=== PATIENT | female | born 1965 | race Hispanic/Latino ===

== ENCOUNTER 2018-10-07 17:31 | Observation (INO) | payer BC ==
[2018-10-07] MEDS ORDERED: ONDANSETRON 4 MG/2 ML VIAL IV PRN (18:51)
[2018-10-07] MEDS ORDERED: GUAIFENESIN/DM 5 ML UCUP PO PRN (18:52)
[2018-10-07 19:16] VITALS: BMI 28.0
[2018-10-07 20:13] LABS: Absolute Lymphocytes (CBC) 1.4 K/uL (0.7-4.9); Absolute Monocytes 0.4 K/uL (0.1-1.3); Absolute Neutrophil 2.5 K/uL (1.8-8.0); Basophils % 0.4 % (0-1.3); Eosinophils % 0.6 % (0-4.4); Hematocrit 42.8 % (36.0-45.0); Lymphocytes % 31.8 % (15.3-44.8); MPV 8.6 fL (7.6-11.3); Monocytes % 9.7 % (3.3-12.3); RBC Red Blood Cell Count 4.65 M/uL (3.86-4.86)
[2018-10-07 20:23] LABS: BUN Blood Urea Nitrogen 6 mg/dL (7-18); Bicarbonate 27 mmol/L (21-32); Glucose Level 148 mg/dL (74-106); Magnesium 2.3 mg/dL (1.8-2.4); Potassium 3.6 mmol/L (3.5-5.1); Sodium Level 142 mmol/L (136-145)
[2018-10-07] MEDS: ALBUTEROL 2.5 MG/3 ML NEB SOL NEB SCH (21:20)
[2018-10-07] MEDS: IPRATROPIUM BROM 0.5MG/2.5ML NEB SCH (21:20)
[2018-10-07 21:35] LABS: Urine Appearance CLEAR; Urine Bilirubin NEGATIVE (NEG); Urine Blood NEGATIVE (NEG); Urine Color YELLOW; Urine Glucose NEGATIVE (NEG); Urine Protein NEGATIVE (NEG); Urine Urobilinogen 0.2 mg/dL (0.2-1.0)
[2018-10-07 21:42] LABS: Urine Microscopic Reflex NO UMIC
[2018-10-07] MEDS: NA CHLORIDE 0.9% 1,000 ML IV SCH (22:22)
[2018-10-08] MEDS: METHYLPREDNISOLONE 125 MG INJ IV SCH ×3 (00:51→18:17)
[2018-10-08] MEDS: TEMAZEPAM 15 MG CAP PO PRN ×2 (00:51→23:38)
[2018-10-08] MEDS: ALBUTEROL 2.5 MG/3 ML NEB SOL NEB SCH ×4 (01:50→20:00)
[2018-10-08] MEDS: IPRATROPIUM BROM 0.5MG/2.5ML NEB SCH ×4 (01:50→20:00)
[2018-10-08] MEDS: NA CHLORIDE 0.9% 1,000 ML IV SCH ×4 (03:00→20:15)
[2018-10-08 06:18] LABS: Absolute Lymphocytes (CBC) 0.4 K/uL (0.7-4.9); Absolute Monocytes 0.1 K/uL (0.1-1.3); Absolute Neutrophil 3.6 K/uL (1.8-8.0); Basophils % 0.3 % (0-1.3); Hematocrit 40.8 % (36.0-45.0); Lymphocytes % 10.4 % (15.3-44.8); MPV 8.7 fL (7.6-11.3); Monocytes % 1.7 % (3.3-12.3); RBC Red Blood Cell Count 4.47 M/uL (3.86-4.86)
[2018-10-08 06:32] LABS: BUN Blood Urea Nitrogen 5 mg/dL (7-18); Bicarbonate 27 mmol/L (21-32); Glucose Level 178 mg/dL (74-106); Magnesium 2.2 mg/dL (1.8-2.4); Potassium 3.7 mmol/L (3.5-5.1); Sodium Level 143 mmol/L (136-145)
[2018-10-08 07:53] LABS: Blood Morphology Comment NOT SEEN (NOT SEEN); Platelet Estimate ADEQ; Urine White Blood Cell Casts OK
[2018-10-08] MEDS ORDERED: DICYCLOMINE HCL 10 MG CAP PO PRN (12:17)
--- NOTE | 2018-10-08 18:01 | PN ---
Date of Progress Note: 10/08/2018 The patient states she feels considerably better although her mouth is still dry. Urination has impr luis. Her appetite has also improved somewhat. She states the first time in day she has not had peng rrhea after eating, although it is still loose. Her white blood count shows a viral type syndrome co nfirmed. We will continue with IV fluids and diet will be advanced and she should be able to be disc harged in the a.m. HR/MODL Voice ID: [id number] Report ID: [id number]
[2018-10-08] MEDS: LORAZEPAM 1 MG TABLET PO SCH (20:12)
[2018-10-09] MEDS: IPRATROPIUM BROM 0.5MG/2.5ML NEB SCH ×2 (02:00→07:38)
[2018-10-09] MEDS: ALBUTEROL 2.5 MG/3 ML NEB SOL NEB SCH ×2 (02:00→07:38)
[2018-10-09 06:45] LABS: Absolute Lymphocytes (CBC) 0.7 K/uL (0.7-4.9); Absolute Monocytes 0.4 K/uL (0.1-1.3); Absolute Neutrophil 5.8 K/uL (1.8-8.0); Basophils % 0.1 % (0-1.3); Hematocrit 39.2 % (36.0-45.0); Monocytes % 6.2 % (3.3-12.3); RBC Red Blood Cell Count 4.26 M/uL (3.86-4.86)
[2018-10-09 07:04] LABS: BUN Blood Urea Nitrogen 6 mg/dL (7-18); Bicarbonate 27 mmol/L (21-32); Glucose Level 126 mg/dL (74-106); Potassium 3.8 mmol/L (3.5-5.1); Sodium Level 145 mmol/L (136-145)
[2018-10-09] MEDS: NA CHLORIDE 0.9% 1,000 ML IV SCH (08:20)
[2018-10-09] MEDS: LORAZEPAM 1 MG TABLET PO SCH (08:30)
[2018-10-09] MEDS ORDERED: SERTRALINE HCL 100 MG TAB PO SCH (09:00)
[2018-10-09] MEDS ORDERED: ATENOLOL 50 MG TAB PO SCH (09:00)
[2018-10-09 12:21] VITALS: O2SAT 98
[2018-10-09 13:11] VITALS: BP 121/78; TEMP 99.5
--- NOTE | 2018-10-09 16:59 | PN ---
Date of Progress Note: 10/09/2018 Subjective: The patient feels much better today. Clinically, she is back to baseline. Occasionally some loose stools after eating. No further respiratory symptoms. We will discharge. Continue on a ntispasmodics, home medications, beta-loida for her treatment, and she can return to work next week and will be seen on a p.r.n. basis. Impression: Viremia; gastroenteritis; dehydration, moderate. HR/MODL Voice ID: [id number] Report ID: [id number]
--- NOTE | 2018-10-09 16:59 | HP ---
Date of Admission: 10/07/2018 Chief Complaint: General malaise, cough, abdominal upset. History Of Present Illness: The patient developed severe cough approximately 1 week prior to admissi on. Associated with this, was general malaise, low-grade temp. She was seen twice in the Urgent [facility], placed on symptomatic treatment, felt better for a few days, and then had a relapse especially as far as the diarrhea and cough were concerned. She was seen in the office, changed the antibiotics, h owever, her symptoms never improved. She was dehydrated while in the office and it was felt that if she did not improve on the change of antibiotic, she would require IV fluids and this was in fact wha t happened. As noted, the patient is in good general health. Had no major problems and usually resp onds well to antibiotics. Does have a treatment problem and was placed on beta blockers for this. Family History: Noncontributory. Social History: Nonsmoker, nondrinker. Physical Examination: General: The patient is an obese middle-aged female. Vital signs: Stable. Head and Neck: Normocephalic. Pupils are equal, reactive to light and accommodation. Fundi negativ e. Trachea midline. Thyroid not palpable. ENT: Negative. Chest: Occasional rales in both bases. Adequate air entry and movement. Cardiovascular: PMI in midclavicular line. Heart sounds normal. Peripheral pulses are present and equal bilaterally. Abdomen: Minimal tenderness in lower abdominal area. No guarding, rebound, tenderness, rigidity. B owel sounds hyperactive. Extremities: Moderately dehydrated. Good tone and movement bilaterally. Reflexes physiologic. Rectal/pelvic: Deferred. Impression: Viral syndrome. Plan: The patient will be admitted, placed on IV fluids. We will hold off on the antibiotics. Deb t her GI symptoms with antispasmodics. HR/MODL Voice ID: [id number]
== END 2018-10-09 12:21 | disposition home or self-care (01) ==
LOC: 2ND 17:54
PROVIDERS: ADMIT Family Medicine; ATTEND Family Medicine
DX: E86.0 Dehydration (principal); B34.9 Viral infection, unspecified; K52.9 Noninfective gastroenteritis and colitis, unspecified
CPT/HCPCS: 36415; 80048; 81003; 83735; 85025; 94640; 96365; 96367; G0378; G0379; J2930; J7030

== ENCOUNTER 2020-09-05 09:42 | Day surgery (SDC) | payer BC ==
[2020-09-05 09:40] LABS: BUN Blood Urea Nitrogen 13 mg/dL (7-18); Bicarbonate 27 mmol/L (21-32); Glucose Level 93 mg/dL (74-106); Potassium 3.9 mmol/L (3.5-5.1); Sodium Level 142 mmol/L (136-145)
[2020-09-05 09:41] LABS: Absolute Lymphocytes (CBC) 1.7 K/uL (0.7-4.9); Basophils % 0.3 % (0-1.3); Hematocrit 36.1 % (36.0-45.0); Lymphocytes % 31.4 % (15.3-44.8); MPV 8.7 fL (7.6-11.3); RBC Red Blood Cell Count 4.32 M/uL (3.86-4.86)
--- NOTE | 2020-09-05 11:20 | RAD REPORT ---
EXAM DESCRIPTION: RAD - Chest Pa And Lat (2 Views) - 09/05/2020 9:43 am CLINICAL HISTORY: preop, patient pending left axillary soft tissue incision and drainage COMPARISON: October 2018 TECHNIQUE: Frontal and lateral views of the chest were obtained. FINDINGS: The lungs are clear. Heart size is normal and central vasculature is within normal limit s. No pleural effusion or pneumothorax seen. No acute bony finding noted. No aortic abnormality. IMPRESSION: No acute cardiopulmonary process. No significant change from comparison study.
[2020-09-05] MEDS ORDERED: CEFAZOLIN/SWI 1gm 1 GM/10 ML SYR ONE (12:13)
[2020-09-05] MEDS ORDERED: Ringers Lactate 1,000 ML IV ONE (12:13)
[2020-09-05 13:08] VITALS: O2SAT 100
[2020-09-05] MEDS ORDERED: MIDAZOLAM HCL 2 MG/2 ML INJ ONE (14:18)
[2020-09-05] MEDS ORDERED: LIDOCAINE 1% MPF 5 ML VIAL ONE (14:18)
[2020-09-05] MEDS ORDERED: FENTANYL CITR 100 MCG/2 ML ONE (14:18)
[2020-09-05] MEDS ORDERED: propofoL 200 MG/20 ML VIAL IV ONE (14:18)
[2020-09-05] MEDS ORDERED: dexAMETHasone 10 MG/ML VIAL ONE (15:16)
--- NOTE | 2020-09-05 15:19 | P.BOP ---
Preoperative diagnosis: infected left axillary subQ mass with suppurative hyfradenitis Postoperative diagnosis: same Primary procedure: Excisional biopsy of infected subQ mass with abscess drainage 3x3 cm Estimated blood loss: <10cc Specimen: mass Findings: abcesss Anesthesia: General Complications: None Transferred to: Recovery Room Condition: Good
[2020-09-05] MEDS ORDERED: ONDANSETRON 4 MG/2 ML VIAL ONE (15:24)
[2020-09-05] MEDS ORDERED: KETOROLAC 30 MG/ML INJ ONE (15:24)
[2020-09-05 16:33] VITALS: BP 125/63; TEMP 96.7
--- NOTE | 2020-09-05 19:01 | OP ---
Date of Procedure: 09/05/2020 Surgeon: Donta Claudio MD Preoperative Diagnosis: Infected left axillary subcutaneous mass with suppurative hidradenitis and a bscess. Postoperative Diagnosis: Infected left axillary subcutaneous mass with suppurative hidradenitis and abscess. Procedure: Excisional biopsy of infected subcutaneous mass with abscess drainage about 3 x 3 cm. Specimen: Mass with necrotic tissue. Finding: The patient has abscess, some component of the suppurative hidradenitis with a tunneling un derneath to connect the 3 incisions that we made. Indication: This is the case of a female, who comes to us with a cellulitis of the axilla. That are a covers about 10 x 7 cm, but the patient has 1 area that has a mass in that region. That mass is ul cerated and will be removed. Also will be drained the abscess that we suspect is underneath. The be nefits, alternatives, and risks were fully explained to the patient, which include, but not limited t o infection, bleeding, damage to adjacent structures, anesthesia complication, recurrence, IA, and ev en . She also understands this may not relieve any symptoms. She might need more than one surg ical intervention. She understood, signed a consent. She understands also and we explained to her t he options. DICTATION ENDS HERE DERIAN/KEAGAN Voice ID: [id number] Report ID: [id number]
--- NOTE | 2020-09-05 19:07 | OP ---
Surgeon: Donta Claudio MD Addenum: Proceure In Detail: The patient was brought to the operating room and placed in supine position. A time-out was called. Left axillary area was prepped and draped in usual sterile fashion. We proceed ed to do multiple incisions. There was an abscess that connected these incisions underneath. We rem luis the lump that she has in that region. That gave us to an abscess that connected to 2 of areas o f the axilla. Those 2 areas were also removed. She has 3 wounds and a small little cut on top of th ose. The abscess was drained. The area was irrigated. We sent the culture yesterday, so we did not do at this time. Hemostasis was obtained. The area was packed with wet-to-dry dressing. The patie nt tolerated the procedure well after injecting local anesthetic. The patient sent to recovery in st able condition. DERIAN/KEAGAN Voice ID: [id number] Report ID: [id number]
--- NOTE | 2020-09-05 19:28 | DS ---
Date of Discharge: 09/05/2020 Diagnosis: Infected left axillary subcutaneous mass with suppurative hidradenitis and abscess. Procedure: Excisional biopsy of infected subcutaneous mass with abscess drainage. Disposition: Home. Activity: As tolerated. No heavy lifting. Plan: The patient will use Bactroban over the area and sterile gauze. Follow up in my office in 1 w [employer] [place] from now. May clean the area with soap and water. DERIAN/KEAGAN Voice ID: [id number] Report ID: [id number]
--- NOTE | 2020-09-06 07:38 | EKG ---
Test Date: 2020-09-05 Test Time: 08:13:08 Spa Assistant Manager: SHAVON MEASUREMENT RESULTS: Intervals: Rate: 76 RI: 128 QRSD: 90 QT: 424 QTc: 477 [place]: P: 69 RI: 128 QRS: 66 T: 67 INTERPRETIVE STATEMENTS: Normal sinus rhythm Normal ECG Compared to ECG 11/10/2014 13:54:18 Sinus bradycardia no longer present Electronically Signed On 09-06-20 07:34:52 CDT by David Brian
== END 2020-09-05 16:23 | disposition home or self-care (01) ==
LOC: OR 09:42
PROVIDERS: ATTEND Surgery
PROC: 0J9F0ZZ Drainage of Left Upper Arm Subcutaneous Tissue and Fascia, Open Approach (ICD-10-PCS; 2020-09-05)
PROC: 0JBF0ZZ Excision of Left Upper Arm Subcutaneous Tissue and Fascia, Open Approach (ICD-10-PCS; principal; 2020-09-05 15:00)
DX: R22.32 Localized swelling, mass and lump, left upper limb (principal); L73.2 Hidradenitis suppurativa; L02.412 Cutaneous abscess of left axilla; I96 Gangrene, not elsewhere classified
CPT/HCPCS: 11450; 10060; 11403; 93005; 85025; 80048; 36415; 88304; 71046; J2704; J2250; J3010; J1100; J0690; J7120; J2405

== ENCOUNTER 2020-09-24 17:43 | Emergency (ER) | payer BC ==
--- OUTSIDE RECORDS SUMMARY | 2020-09-24 17:46 | XMS REPORT | Continuity of Care Document ---
:1965 Author Organization [facility] t Address [address] [place] [address] Care Team Providers Name Role Phone Lab, Fam Pob I Attending Clinician Unavailable Orth Attending Clinician Orth Admitting Clinician Problems Condition Condition Condition Status Onset Resolution Last Treating Co mments Source Name Details Category Date Date Treatment Clinician Date MORBID Diagnosis Active 2012-03-03 Mem oria OBESITY 8-20 19:37:00 l MORBID 00:00: Mainor OBESITY 00 Active 01/12/2012 [facility] RVQ PAIN Diagnosis Active 2011-10-15 M emoria -17 08:17:00 l RVQ PAIN 00:00: Minor n 00 Active 10/09/2011 [facility] Pain Problem Active 2012-03-06 Memor ia 08:04:32 l Pain Mainor Active Problem 03/06/2012 [facility] MORBID Diagnosis Active 2012-03-03 Mem oria OBESITY 19:37:00 l MORBID Main[place] OBESITY Active [facility] Allergies, Adverse Reactions, Alerts Allergy Allergy Status Severity Reaction(s) Onset Inactive Treating Comm ents Source Name Type Date Date Clinician codeine codeine Active Cordell Hayward Vicodin Vicodin Active Cordell Hayward Social History Social Habit Start Date Stop Date Quantity Comments Source Social History 2019-07-09 2019-07-09 Imra talamantes 05:59:59 05:59:59 Medications Ordered Filled Start Stop Current Ordering Indication Dosage Frequency Signature Comments Components Source Medication Medication Date Date Medication? Clinician (SIG) Name Name acetaminoph 2011-05 Yes Philip 15 ml, PO, Memoria en-hydrocod 0-11 Parra Q4H, PRN, l one 325 17:07: Owen 500 mL, [place] mg-10 mg/15 01 for pain, mL oral Substituti solution on Allowed, Maintenanc e, SOLN Lortab 500 2011-05 No Philip 15 mL, PO, M emoria mg-7.5 0-11 Parra Q4H, PRN, l mg/15 mL 17:01: Owen 500 mL, 0, Her chance oral elixir 06 0, Pain Score 1-5, Substituti on Allowed, Maintenanc e, ELIX sertraline 2011-05 Yes Philip 150 mg, Maxim shabnam 20 mg/mL 0-11 Parra 7.5 mL, l oral 16:58: Owen PO, Daily, [place] concentrate 58 100 mL, Substituti on Allowed, CONC Lortab 2011-05 No Philip 15 mL, Memoria Elixir 0-10 Fidel Route: PO, l 500mg-7.5mg 23:28: Brayden Drug Form: Main[place] /15ml 00 ELIX, Dosing Weight 86.506, kg, Q4H, PRN Pain Score 1-5, Start date: 03/03/12 18:28:00, Duration: 30 day, Stop date: 04/02/12 18:27:00 Lortab 2011-05 No Philip 30 mL, Memoria Elixir 0-10 Fidel Route: PO, l 500mg-7.5mg 23:26: Brayden Drug Form: [place] /15ml 00 ELIX, Dosing Weight 86.506, kg, Q4H, PRN Pain Score 6-10, Start date: 03/03/12 18:26:00, Duration: 30 day, Stop date: 04/02/12 18:25:00 Lortab 2011-05 No Philip 15 ml, Memoria Elixir 0-10 Fidel Route: PO, l 500mg-7.5mg 15:22: Brayden Drug Form: [place] /15ml 00 ELIX, Dosing Weight 86.506, kg, Q6H, PRN Pain, Start date: 03/03/12 10:22:00, Duration: 30 day, Stop date: 04/02/12 10:21:00 heparin 2011-05 No Ritchie 5,000 Memoria 0-10 [place] unit, 1 l 13:00: De Jesus Sr mL, Route: He rmann 00 SUB-Q, Drug form: INJ, Q8H, Start date: 03/03/12 8:00:00, Duration: 30 day, Stop date: 04/02/12 0:00:00 D5W 1/2NS + 2011-05 No Philip 1,000 mL, Francy sheppard KCL 20mEq/L 0-10 Parra Rate: 75 l 1000ml 12:54: Owen ml/hr, Mainor (Premix) 00 Infuse 1,000 mL over: 13.3 hr, Route: IV, kg, Total Volume: 1,000, Start date: 03/03/12 7:54:00, Stop date: 04/02/12 7:53:00 Protonix 2011-05 No Ritchie 40 mg, Memoria 0-09 [place] Route: l 21:30: De Jesus Sr IVP, Drug Her chance 00 form: INJ, Before Dinner, Start date: 03/02/12 16:30:00, Duration: 30 day, Stop date: 03/31/12 16:30:00 heparin 2011-05 No Johnny 5,000 Memoria 5000 0-09 Edvin unit, 1 l units/mL 21:00: [place] mL, Route: Mainor injectable 00 SUB-Q, solution Drug form: INJ, Q8H, Dosing Weight 86.506, kg, Start date: 03/02/12 16:00:00, Duration: 30 day, Stop date: 04/01/12 8:00:00 Mefoxin 2011-05 No Ritchie 2 gm, Memoria 0-09 [place] Route: l 20:00: De Jesus Sr IVPB, Drug He rmann 00 form: INJ, ABXQ8H, Start date: 03/02/12 15:00:00, Duration: 2 doses or times, Stop date: 03/03/12 0:00:00 Ofirmev 2011-05 No Ritchie 1,000 mg, Memor ia 0-09 [place] 100 mL, l 19:00: De Jesus Sr Route: IV, He rmann 00 Drug form: INJ, Q6H-02, Start date: 03/02/12 14:00:00, Duration: 3 doses or times, Stop date: 03/03/12 4:00:00 Zofran 2011- No Ritchie 4 mg, 2 Memoria 0-09 [place] mL, Route: l 18:08: De Jesus Sr IVP, Drug Her chance 00 form: INJ, Q6H, PRN Nausea & Vomiting, Start date: 03/02/12 13:08:00, Duration: 30 day, Stop date: 04/01/12 13:07:00 Phenergan 2011-05 No Ritchie 25 mg, 1 Maxim shabnam 0-09 [place] mL, Route: l 18:07: De Jesus Sr IM, Drug Herm kimmie 00 form: INJ, Q4H, PRN Nausea & Vomiting, Start date: 03/02/12 13:07:00, Duration: 30 day, Stop date: 04/01/12 13:06:00 Benadryl 2011-05 No Ritchie 25 mg, 0.5 Mem oria 0-09 [place] mL, Route: l 18:06: De Jesus Sr IM, Drug Herm kimmie 00 form: INJ, Bedtime, PRN Insomnia, Start date: 03/02/12 13:06:00, Duration: 30 day, Stop date: 04/01/12 13:05:00 Mefoxin 2011- No Ritchie 2 gm, Memoria 0-09 [place] Route: l 18:00: De Jesus Sr IVPB, Drug He rmann 00 form: INJ, ABXQ6H, Start date: 03/02/12 13:00:00, Duration: 3 doses or times, Stop date: 03/03/12 1:00:00 Zofran 2011- No Ritchie 4 mg, 2 Memoria 0-09 [place] mL, Route: l 16:58: De Jesus Sr IVP, Drug Her chance 00 form: INJ, Q8H, PRN Nausea & Vomiting, Start date: 03/02/12 11:58:00, Duration: 30 day, Stop date: 04/01/12 11:57:00 Benadryl 2011-05 No Ritchie 25 mg, 0.5 Mem oria 0-09 [place] mL, Route: l 16:57: De Jesus Sr IV, Drug Herm kimmie 00 form: INJ, Q6H, PRN Itching, Start date: 03/02/12 11:57:00, Duration: 30 day, Stop date: 04/01/12 11:56:00 hydromorpho 2011-05 No Philip 6 mg, 30 Me moria ne 6 mg 0-09 Parra mL, Route: l 16:55: Owen IV, Drug Form: INJ, Start date: 03/02/12 11:55:00, Duration: 30 day, Stop date: 04/01/12 11:54:00 naloxone 2011-05 No Ritchie 0.4 mg, 1 Maxim shabnam 0-09 [place] mL, Route: l 16:53: De Jesus Sr IV, Drug form: INJ, PRN, PRN Narcotic Reversal, Start date: 03/02/12 11:53:00, Duration: 30 day, Stop date: 04/01/12 10:52:00 ondansetron 2011-05 No Sammy 4 mg, 2 Memoria 0-09 Marroquin II mL, Route: l 15:03: IVP, Drug form: INJ, ONCE, Dosing Weight 86.506, kg, PRN Nausea & Vomiting, Start date: 03/02/12 10:03:00 hydromorpho 2011-05 No Sammy 0.5 mg, Memoria ne 0-09 Marroquin II 0.25 mL, l 15:03: Route: Mainor 00 IVP, Drug form: INJ, Q5Min, Dosing Weight 86.506, kg, PRN Pain Score 4-6, Start date: 03/02/12 10:03:00, Duration: 5 doses or times, Stop date: 03/03/12 0:00:00 naloxone 2011-05 No Sammy 0.04 mg, Me moria 0-09 Marroquin II 0.1 mL, l 15:03: Route: Mainor 00 IVP, Drug form: INJ, Q2MIN, Dosing Weight 86.506, kg, PRN Narcotic Reversal, Start date: 03/02/12 10:03:00, Duration: 8 doses or times, Stop date: 03/03/12 0:00:00 flumazenil 2011-05 No Sammy 0.2 mg, 2 Memoria 0-09 Marroquin II mL, Route: l 15:03: IVP, Drug Mainor 00 form: INJ, PRN, Dosing Weight 86.506, kg, PRN Benzodiaze pine Reversal, Initial dose, Start date: 03/02/12 10:03:00, Duration: 30 day, Stop date: 04/01/12 9:02:00 fentanyl 2011- No Sammy 25 Memori a 0-09 Marroquin II microgram, l 15:03: 0.5 mL, Mainor 00 Route: IVP, Drug form: INJ, Q5Min, Dosing Weight 86.506, kg, PRN Pain Score 4-6, Start date: 03/02/12 10:03:00, Duration: 4 doses or times, Stop date: 03/03/12 0:00:00 cefoxitin 2011-05 No Johnny 2 gm, Memor ia 0 Route: l 15:00: IVPB, [place] 00 ABXQ6H, Dosing Weight 86.506, kg, Start date: 03/02/12 10:00:00, Stop date: 03/03/12 4:45:00 Dilaudid 2011-05 No Johnny 6 mg, 30 Mem oria 0.2 mg/ml 0 mL, Route: l PARKING MANAGER (6 15:00: IV, PARKING MANAGER Her chance mg/30 mL) 00 Dose: 0.2 INJ Syringe mg, PARKING MANAGER 6 mg Lockout: 6 minutes, 4 Hour Limit (In MG): 4.8, Drug Form: INJ, Continuous , Start date: 03/02/12 10:00:00, Duration: 30 day, Stop date: 04/01/12 8:59:00 Ofirmev 2011-05 No Johnny 1,000 mg, Mem oria 0- 100 mL, l 14:50: Route: IV, He rm Drug form: INJ, ONCE, Dosing Weight 86.506, kg, for > or = 50 kg, Start date: 03/02/12 9:50:00, Stop date: 03/02/12 9:50:00 Zofran 2011-05 No Johnny 4 mg, 2 Memori a 0- mL, Route: l 14:48: IV, Drug form: INJ, Q8H, Dosing Weight 86.506, kg, PRN Nausea, Start date: 03/02/12 9:48:00, Duration: 30 day, Stop date: 04/01/12 9:47:00 Lactated 2011-05 No Philip 1,000 mL, Maxim shabnam Ringers IV 0 Parra Rate: 150 l 1,000 mL 14:48: Owen ml/hr, [place] 00 Infuse over: 6.7 hr, Route: IV, kg, Total Volume: 1,000, Start date: 03/02/12 9:48:00, Duration: 30 day, Stop date: 04/01/12 9:47:00, heparin 2011-05 No Ritchie 5,000 Memoria 0-09 [place] unit, 1 l 04:00: De Jesus Sr mL, Route: He rmann 00 SUB-Q, Drug form: INJ, PRE OP, Start date: 03/01/12 23:00:00, Duration: 1 day, Stop date: 03/02/12 22:59:00 scopolamine 2011-05 No Ritchie 1 patch, Me moria 0-09 Ventura Route: l 04:00: De Jesus Sr TOP, Drug Her chance 00 form: ERFILM, PRE OP, Start date: 03/01/12 23:00:00, Duration: 1 day, Stop date: 03/02/12 22:59:00 Ofirmev 2011-05 No Ritchie 1,000 mg, Memor ia 0-09 [place] 100 mL, l 04:00: De Jesus Sr Route: IV, He rmann 00 Drug form: INJ, PRE OP, Start date: 03/01/12 23:00:00, Duration: 1 day, Stop date: 03/02/12 22:59:00 Mefoxin 2011-05 No Ritchie 2 gm, Memoria 0-09 [place] Route: l 04:00: De Jesus Sr IVPB, Drug He rmann 00 form: INJ, PRE OP, Start date: 03/01/12 23:00:00, Duration: 1 day, Stop date: 03/02/12 22:59:00 LORAzepam 1 2011-05 Yes 1 mg, 1 Mem oria mg oral 0-03 tab, PO, l tablet 16:03: TID, PRN, Minor n 44 20 tab, Anxiety, Substituti on Allowed atenolol 50 2011-05 Yes 50 mg, 1 Me moria mg oral 0-03 tab, PO, l tablet 16:03: Daily, 30 Minor n 26 tab, Substituti on Allowed Zoloft 2011-05 No 150 mg, Memoria 0-03 PO, Daily, l 16:03: Substituti [place] 10 on Allowed Vital Signs Vital Name Observation Time Observation Value Comments Source Temperature Oral (F) 2012-03-04 17:20:00 98.3 F [facility] [address] Heart Rate 2012-03-04 17:20:00 [facility] [place] Systolic (mm Hg) 2012-03-04 17:20:00 Maxim rial [place] Respitory Rate 2012-03-04 17:20:00 Memori al [place] Diastolic (mm Hg) 2012-03-04 17:20:00 Mem orial [place] Diastolic (mm Hg) 2012-03-04 12:55:00 Mem orial [address] Respitory Rate 2012-03-04 12:55:00 Memori al [address] Temperature Oral (F) 2012-03-04 12:55:00 98.2 F [facility] [place] Heart Rate 2012-03-04 12:55:00 [facility] [place] Systolic (mm Hg) 2012-03-04 12:55:00 Maxim rial [address] Temperature Oral (F) 2012-03-04 09:16:00 98.1 F [facility] [place] Respitory Rate 2012-03-04 09:16:00 Memori al [address] Heart Rate 2012-03-04 09:16:00 [facility] Diastolic (mm Hg) 2012-03-04 09:16:00 Mem orial [place] Systolic (mm Hg) 2012-03-04 09:16:00 Maxim rial [place] Weight 2012-03-02 10:54:00 [facility] [address] Height 2012-02-25 17:39:00 176.53 cm [facility] Procedures This patient has no known procedures. Encounters Start End Encounter Admission Attending Care Care Encounter Source Date/Time Date/Time Type Type Clinicians Facility Department ID 2020-09-20 2020-09-20 Laboratory Lab, [facility] [id number] 14:42:08 15:02:08 Only Fam b I [facility] [id number] [place] [id number] Professio [id number] nal [address] 2019-07-08 2019-07-08 Outpatient ConnerGiovanny [id number] 13:04:50 23:59:59 8 Results Test Description Test Time Test Comments Results Result Comments Source CHEMISTRY 2012-03-04 0.7 [facility] 08:00:00 CHEMISTRY 2012-03-04 111 [facility] 08:00:00 CHEMISTRY 2012-03-04 141 [facility] 08:00:00 CHEMISTRY 2012-03-04 3.8 [facility] 08:00:00 CHEMISTRY 2012-03-04 106 [facility] 08:00:00 CHEMISTRY 2012-03-04 25 [facility] 08:00:00 CHEMISTRY 2012-03-04 103 [facility] 08:00:00 CHEMISTRY 2012-03-04 7.6 [facility] 08:00:00 CHEMISTRY 2012-03-04 3 [facility] 08:00:00 CHEMISTRY 2012-03-04 13.8 [facility] 08:00:00 CHEMISTRY 2012-03-04 2.2 [facility] 08:00:00 CHEMISTRY 2012-03-04 2.0 [facility] 08:00:00 HEMATOLOGY 2012-03-04 0.0 [facility] 08:00:00 HEMATOLOGY 2012-03-04 0.0 [facility] 08:00:00 HEMATOLOGY 2012-03-04 68.3 [facility] 08:00:00 HEMATOLOGY 2012-03-04 6.4 [facility] 08:00:00 HEMATOLOGY 2012-03-04 25.0 [facility] 08:00:00 HEMATOLOGY 2012-03-04 6.0 [facility] 08:00:00 HEMATOLOGY 2012-03-04 0.1 [facility] 08:00:00 HEMATOLOGY 2012-03-04 0.6 [facility] 08:00:00 HEMATOLOGY 2012-03-04 2.2 [facility] 08:00:00 HEMATOLOGY 2012-03-04 0.2 [facility] 08:00:00 HEMATOLOGY 2012-03-04 9.5 [facility] 08:00:00 HEMATOLOGY 2012-03-04 198 [facility] 08:00:00 HEMATOLOGY 2012-03-04 08:00:00 Test Item Value Reference Range Interpretation Comme nts MCH (test code = MCH) 31.0 pg 27.0-31.0 N [facility] WmxbetfYUDKOJFWVZ1657-18-37 08:00:0033.1[facility]ann[facility]MATOLOGY 2012-03-04 08:00:0013.7[facility] ZxkqbwqWAZHZZGBMU5894-18-42 08:00:0039.5[facility] WgwquucRWWNDLXIEF6983-80-96 08:00:0093.7[facility] TtfgdegUNXFWYQRPP1718-58-99 08:00:008.8[facility] DjdhbbkZGNCPBSHHX5538-33-50 08:00:004.22[facility] [place] MIKMQDBLKQ0131-92-00 08:00:0013.1[facility] EesqxdzJQTOCNAFJX9311-01-31 07:26:00 12.7[facility] VeglcwfBYKKHTLXFY2018-66-31 07:26:0036.7[facility]annHEMATOLOGY 2012-03-03 07:26:009.1[facility] LwocludDWJPRWUFHL3133-83-86 07:26:62875Ljftozkz QexzsawFKSYCLCSYA6402-55-03 07:26:000.0[facility] VuysqdzPKSGVSIVZN2163-52-83 07:26:000.2[facility] NwuudcvWLJIARJTLD1586-27-16 07:26:001.7[facility] ESGGGENAKR8731-72-94 07:26:000.0[facility] TkwgllsGBGXQKYWXA8323-51-96 07:26:007.4 [facility] YaeoxpuHTVDFOTTBX2868-41-47 07:26:0075.1[facility]annHEMATOLOGY 2012-03-03 07:26:0016.7[facility] HxahuqlISRIBPAYLN6249-60-47 07:26:008.0[facility] JfjfeuyUNLKGLARNK5134-13-25 07:26:000.8[facility] UfshiroMZFFLNMCOI4606-77-15 07:26:000.0[facility] ZlsvhcsJONRVTLSN2493-43-59 07:26:001.8[facility] GFSVGBXVT5899-47-46 07:26:49950Dhkhxsyl CmqrhzsVFYSUTQAW9447-15-64 07:26:0086 [facility] VfnzfgyWCOTKBMYM5735-03-76 07:26:000.7[facility]annCHEMISTRY 2012-03-03 07:26:005[facility] ZcashvbPCIJKWDZA2925-55-64 07:26:60671Uruogtej RnndvbzXRUZOHYYW3170-14-25 07:26:004.5[facility] DhjtlulEUIJOGTUT2620-31-99 07:26:43898Bhvntinx KekvklfFKSEGYFZM1296-35-91 07:26:008.0[facility] MPAICHADE5501-94-57 07:26:0025[facility] RqzdtebJJZDVWAFI4256-83-10 07:26:0013.5 [facility] JixroznLTMEALCIB8174-10-92 07:26:002.5[facility]annHEMATOLOGY 2012-03-03 07:26:009.9[facility] NpkmjeiVLUVBDEDVK7337-60-56 07:26:003.98[facility] MxysxyfWFXSTDSGBN2254-06-28 07:26:0034.5[facility] UfuzjqmMJROXRJKHJ2268-57-79 07:26:0013.4[facility] PtrwbixCYYSVADAPH3697-81-79 07:26:0092.2[facility] GWUATKDPVR0346-73-09 07:26:00 Test Item Value Reference Range Interpretation Comments MCH (test code = MCH) 31.9 pg 27.0-31.0 H [facility]ann[facility]OOD BANK DMATIZX1772-44-87 10:45:00Negative (03/02/2012 05:45:00)[facility] GagiferCWDPCRWHY0503-10-81 10:30:00Negative (03/02/2012 05:30:00)[facility] BkrxoclAHWAPRWUP7603-99-73 16:00:0089[facility]annCHEMISTRY 2012-02-25 16:00:0047[facility] VxrlcopYFAKYHJMP5253-32-55 16:00:004.0[facility] PkjiptbNOATFNXUO6677-64-94 16:00:0013.1[facility] CnupvxgXHVFQMPKC1441-35-21 16:00:001.2[facility] LosxnunRJCYAKBCH0713-51-01 16:00:0017[facility] MSAIZPUUK2464-02-38 16:00:003.2[facility] OpgvnuzJBPRCFGUGN6318-43-62 16:00:000.0 [facility] KvvxaymVTOBNJEWSK2739-19-41 16:00:000.0[facility]annHEMATOLOGY 2012-02-25 16:00:000.4[facility] CubckbfOVSBCQRNUM8230-39-01 16:00:004.2[facility] WtsuzlvNPZSKHGLTS1570-24-26 16:00:002.4[facility] GbsnixxSWREIFMTYC3365-18-55 16:00:000.2[facility] HvrbdxmFFJHIOIYJW9623-36-39 16:00:005.7[facility] [place] JZEDSKJCOL3053-22-21 16:00:000.4[facility] IuguciaDLECPDNCIL8954-39-50 16:00:00 34.1[facility] IulaqpbTLRDHKAOMN4871-91-90 16:00:0059.6[facility]annHEMATOLOGY 2012-02-25 16:00:0014.1[facility] JjvgzcmXGWPUIDVFX1928-83-41 16:00:0033.1[facility] MowciqaWRLYUIWNBT8870-76-66 16:00:00 Test Item Value Reference Range Interpretation Comments MCH (test code = MCH) 31.3 pg 27.0-31.0 H [facility] BpbistlESTRYFSPMD7840-54-72 16:00:55664Kbsvggom HermannHEMATOLOGY 2012-02-25 16:00:009.4[facility] XmzbylhEQUEQNNZMV5056-41-56 16:00:0014.7[facility] AhevmifAVDOXTMQKP0795-41-18 16:00:0094.6[facility] EaxyxxjWWTMODCZMS5442-52-29 16:00:007.0[facility] SfgsuoqLJKXFNMIXJ6685-23-01 16:00:0044.3[facility] ANGOASWFSY5118-27-99 16:00:004.68[facility] SpnglifRFUJLMHHZN9062-54-72 16:00:00 <1[facility] PzpofeoFNIYPPUWLW8137-89-40 16:00:00Few /LPF *NA*(02/25/2012 11:00:00)[facility] ZzbcpjkZGFPXPPZST7603-93-81 16:00:00Few /LPF *NA*(02/25/2012 11:00:00)[facility] DgecgpgRZSERMWNEG4738-91-85 16:00:00Negative (02/25/2012 11:00:00)[facility] YicjgmmLKLEGRXULI3827-03-27 16:00:00Negative (02/25/2012 11:00:00)[facility] MgdecfjINNSBPPKJN3440-06-64 16:00:00Negative (02/25/2012 11:00:00)[facility] QdghonjTGRDNWSIYG1725-57-69 16:00:00Negative *NA*(02/25/2012 11:00:00)[facility] KafhrmnMGBPSMSBZW3627-14-33 16:00:00Negative mg/dL *NA*(02/25/2012 11:00:00)[facility] YbvjunjFBGDNJMWLZ0112-81-77 16:00:00Negative mg/dL *NA*(02/25/2012 11:00:00)[facility] VodqgpjJGYCVORZBR1288-95-67 16:00:00 Negative mg/dL (02/25/2012 11:00:00)[facility] ZfjnynjPGVZFROBBK7747-70-73 16:00:00Yellow *NA*(02/25/2012 11:00:00)[facility] ZhrsmqmPLPGZMYBTA2412-96-47 16:00:001.018[facility] HkucdseGXMWIDXOPL5216-35-68 16:00:00Clear (02/25/2012 11:00:00)[facility] RiojmozFRDEQRNWLC4337-84-17 16:00:005.5[facility] [place] XYGNQEWJB4477-12-12 16:00:00>60[facility] CssxremETXWAURAY4191-47-22 16:00:0012 [facility] GaflwyjFYYXVDDVV8439-75-45 16:00:000.7[facility] HermannCHEMISTRY 2012-02-25 16:00:23535Hbuovliu TtzymjtZTGYDWPID2616-96-75 16:00:005.1[facility] SrisevoJLVMALYHF8829-88-04 16:00:90703Qybygsph KuvtynhODVUPCTUT5941-61-59 16:00:0026[facility] YpvsmeiBRWCAQRUG2477-69-74 16:00:007.2[facility] [place] DJSYXKQQP7066-42-81 16:00:000.4[facility] IelzwgfLYZARJZYK0715-64-83 16:00:008.6 [facility] UtfdpvtWWQNNFWXM1227-67-33 16:00:0014[facility] HermannCHEMISTRY 2012-02-25 16:00:0072[facility] [place]
--- NOTE | 2020-09-24 20:02 | RAD REPORT ---
EXAM DESCRIPTION: RAD - Chest Single View - 09/24/2020 7:38 pm CLINICAL HISTORY: CONGESTION COMPARISON: Two view chest September 05, 2020 TECHNIQUE: AP portable chest image was obtained 09/24/2020 7:38 pm . FINDINGS: No peripheral mass, consolidation, failure or volume overload. Interstitial markings are p rominent but not clearly different. Heart and vasculature are normal. No measurable pleural effusion and no pneumothorax. No acute bony abnormality seen. No acute aortic findings suspected. IMPRESSION: No acute cardiopulmonary process. No significant change from comparison study.
--- NOTE | 2020-09-24 22:07 | ER ---
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 Doctor sent her to get tested for covid again, pt reports she was tested . 19:23 Coronavirus screen: Client presents with at least one sign or symptom that may indicate ea coronavirus-19. Standard/surgical mask placed on the client. Ebola Screen: No symptoms or risks identified at this time. Initial Sepsis Screen: Does the patient meet any 2 criteria? No. Patient's initial sepsis screen is negative. Does the patient have a suspected source of infection? No. Patient's initial sepsis screen is negative. Risk Assessment: Do you want to hurt yourself or someone else? Patient reports no desire to harm self or others. Onset of symptoms was September 24, 2020. 19:23 Method Of Arrival: Ambulatory ea 19:23 Acuity: TACHO 3 ea Historical: - Allergies: 19:23 No Known Allergies; ea - PSHx: 19:23 gastric bypass; foot surgery; ea - Immunization history:: Adult Immunizations up to date. - Social history:: Smoking status: Patient denies any tobacco usage or history of. - Family history:: not pertinent. - Hospitalizations: : No recent hospitalization is reported. Screenin:22 Abuse screen: Denies threats or abuse. Nutritional screening: No deficits noted. ea Tuberculosis screening: No symptoms or risk factors identified. Fall Risk None identified. Assessment: 22:21 General: Appears uncomfortable, Behavior is calm, cooperative, appropriate for age. ea Pain: Denies pain. Cardiovascular: Patient's skin is warm and dry. Respiratory: Airway is patent Respiratory effort is even, unlabored, Respiratory pattern is regular, symmetrical. Derm: Skin is pink, warm \T\ dry. 22:31 Reassessment: Patient and/or family updated on plan of care and expected duration. Pain ea level reassessed. Patient is alert, oriented x 3, equal unlabored respirations, skin warm/dry/pink. Discharge instruction given to patient verbalized the understanding of instruction. Pt left ED ambulatory tolerating well. Vital Signs: 19:23 BP 131 / 89; Pulse 99; Resp 19; Temp 98.6; Pulse Ox 99% ; Weight 69.4 kg; Height 5 ft. ea 2 in. (157.48 cm); Pain 0/10; 22:32 BP 128 / 78; Pulse 80; Resp 18; Temp 98.4; Pulse Ox 98% ; ea 19:23 Body Mass Index 27.98 (69.40 kg, 157.48 cm) ea ED Course: 17:46 Patient arrived in ED. mr 17:46 Johnny Su MD is Private Physician. mr 19:24 Triage completed. ea 19:38 XRAY Chest (1 view) In Process Unspecified. EDMS 21:40 Jorge Wagner MD is Attending Physician. rn 22:21 Elsa Brothers RN is Primary Nurse. ea 22:21 Patient has correct armband on for positive identification. Bed in low position. Call ea light in reach. 22:22 Arm band placed on right wrist. Patient placed in an exam room, on a stretcher, on ea pulse oximetry. 22:32 No provider procedures requiring assistance completed. Patient did not have IV access ea during this emergency room visit. Administered Medications: 22:28 Drug: SOLU-Medrol (methylPREDNISolone sodium succinate) 125 mg Route: IM; Site: right ea gluteus; 22:33 Follow up: Response: No adverse reaction ea Outcome: 22:06 Discharge ordered by . rn 22:32 Discharged to home ambulatory, with family. ea 22:32 Condition: stable 22:32 Discharge instructions given to patient, Instructed on discharge instructions, follow up and referral plans. Demonstrated understanding of instructions, follow-up care. 22:33 Patient left the ED. ea Signatures: Dispatcher [employer] EDDE Kayla Wilson mr Jorge Wagner MD MD rn Antunez, Elena, RN RN ea
--- NOTE | 2020-09-24 22:07 | EDPHYS ---
Physician Documentation [facility] Name: Irish Bull Age: 55 yrs Sex: Female : 1965 Arrival Date: 09/24/2020 Time: 17:46 Bed 18 Private MD: Johnny Su ED Physician Jorge Wagner HPI: 09/24 22:01 This 55 yrs old Female presents to ER via Ambulatory with complaints of Cough, rn Congestion, Eye Swelling. 22:01 The patient or guardian reports cough, that is intermittent, described as mild, with no rn sputum. Onset: The symptoms/episode began/occurred 1 week(s) ago. Severity of symptoms: At their worst the symptoms were mild, in the emergency department the symptoms are unchanged. Modifying factors: The symptoms are alleviated by nothing, the symptoms are aggravated by nothing. Associated signs and symptoms: Pertinent positives: rhinorrhea, sore throat, Pertinent negatives: chest pain, fever. The patient has experienced similar episodes in the past. Reports tested twice already for COVID but so did family member and most recent test for family member now positive. She has had symptoms now for 1.5 weeks with cough, congestion, sore throat, eye drainage, has been seen by pcp, given oral abx, eye abx drops. Not improving, not worse either. Here for repeat covid testing.. Historical: - Allergies: 19:23 No Known Allergies; ea - PSHx: 19:23 gastric bypass; foot surgery; ea - Immunization history:: Adult Immunizations up to date. - Social history:: Smoking status: Patient denies any tobacco usage or history of. - Family history:: not pertinent. - Hospitalizations: : No recent hospitalization is reported. ROS: 22:01 Constitutional: Negative for fever, chills, and weight loss, Eyes: + eye drainage ENT: rn + sore throat Neck: Negative for injury, pain, and swelling, Cardiovascular: Negative for chest pain, palpitations, and edema, Respiratory: Negative for shortness of breath, wheezing, and pleuritic chest pain, Abdomen/GI: Negative for abdominal pain, nausea, vomiting, diarrhea, and constipation, Back: Negative for injury and pain, : Negative for injury, bleeding, discharge, and swelling, MS/Extremity: Negative for injury and deformity, Skin: Negative for injury, rash, and discoloration, Neuro: Negative for headache, weakness, numbness, tingling, and seizure. Exam: 22:01 Constitutional: This is a well developed, well nourished patient who is awake, alert, rn and in no acute distress. Head/Face: Normocephalic, atraumatic. Eyes: Dried right ocular drainage, no corneal abnormality or discoloration. Left eye normal. No curretn drainage. ENT: No stridor Neck: Trachea midline, no masses palpated, and no cervical lymphadenopathy. Supple, full range of motion without nuchal rigidity, or vertebral point tenderness. No Meningismus. Cardiovascular: Regular rate and rhythm. No pulse deficits. Respiratory: Speaking full sentences, unlabored. No increased work of breathing, no retractions or nasal flaring. Unlabored when walking from bathroom. Abdomen/GI: soft, non-tender Skin: Warm, dry MS/ Extremity: Pulses equal, no cyanosis. Neurovascular intact. Full, normal range of motion. Equal circumference. Neuro: Awake and alert, GCS 15, oriented to person, place, time, and situation. Cranial nerves II-XII grossly intact. Motor strength 5/5 in all extremities. Sensory grossly intact. Cerebellar exam normal. Normal gait. Vital Signs: 19:23 BP 131 / 89; Pulse 99; Resp 19; Temp 98.6; Pulse Ox 99% ; Weight 69.4 kg; Height 5 ft. ea 2 in. (157.48 cm); Pain 0/10; 22:32 BP 128 / 78; Pulse 80; Resp 18; Temp 98.4; Pulse Ox 98% ; ea 19:23 Body Mass Index 27.98 (69.40 kg, 157.48 cm) ea MDM: 21:40 Patient medically screened. rn 22:04 Differential Diagnosis: Upper Respiratory Infection Pharyngitis Viral Syndrome rn Pneumonia. Data reviewed: vital signs, nurses notes, lab test result(s), radiologic studies, plain films, and as a result, I will discharge patient. Counseling: I had a detailed discussion with the patient and/or guardian regarding: the historical points, exam findings, and any diagnostic results supporting the discharge/admit diagnosis, lab results, radiology results, the need for outpatient follow up, to return to the emergency department if symptoms worsen or persist or if there are any questions or concerns that arise at home. Special discussion: I discussed with the patient/guardian in detail that at this point there is no indication for admission to the hospital. It is understood, however, that if the symptoms persist or worsen the patient needs to return immediately for re-evaluation. Based on the history and exam findings, there is no indication for further emergent testing or inpatient evaluation. I discussed with the patient/guardian the need to see the primary care provider for further evaluation of the symptoms. 22:04 ED course: Stable vitals, no oxygen requirement, COVID neg, likely viral syndrome given rn constellation of symptoms and failure of abx x 2 to correct symptoms. Stable vitals. Will dc home. . 09/24 19:26 Order name: XRAY Chest (1 view); Complete Time: 21:40 ea 09/24 22:03 Order name: SARS-COV-2 RT PCR; Complete Time: 22:04 EDMS Administered Medications: 22:28 Drug: SOLU-Medrol (methylPREDNISolone sodium succinate) 125 mg Route: IM; Site: right ea gluteus; 22:33 Follow up: Response: No adverse reaction ea Disposition: 09/24/20 22:06 Discharged to Home. Impression: Acute upper respiratory infection, unspecified. - Condition is Stable. - Discharge Instructions: Upper Respiratory Infection, Adult, Viral Respiratory Infection. - Medication Reconciliation Form, Thank You Letter, Antibiotic Education, Prescription Opioid Use form. - Follow up: Private Physician; When: As needed; Reason: Recheck today's complaints, Re-evaluation by your physician. - Problem is an ongoing problem. - Symptoms have improved. Signatures: Dispatcher [employer] [facility] Jorge Wagner MD MD rn Antunez, Elena, RN RN ea Corrections: (The following items were deleted from the chart) 21:23 20:41 CORONAVIRUS+MR.LAB.BRZ ordered. [facility] 22:33 22:06 09/24/2020 22:06 Discharged to Home. Impression: Acute upper respiratory ea infection, unspecified. Condition is Stable. Forms are Medication Reconciliation Form, Thank You Letter, Antibiotic Education, Prescription Opioid Use. Follow up: Private Physician; When: As needed; Reason: Recheck today's complaints, Re-evaluation by your physician. Problem is an ongoing problem. Symptoms have improved. rn
[2020-09-24] MEDS ORDERED: METHYLPREDNISOLONE 125 MG INJ ONE (22:46)
[2020-09-24 23:15] VITALS: BP 128/78; TEMP 98.4; O2SAT 98
== END 2020-09-24 22:33 | disposition home or self-care (01) ==
LOC: ER 17:43
DX: J06.9 Acute upper respiratory infection, unspecified (principal); Z20.822 Contact with and (suspected) exposure to COVID-19
CPT/HCPCS: 71045; U0003; J2930; 96372; 99283